=== PATIENT | female | born 1990 | race American Indian/Alaskan Native ===

== ENCOUNTER 2018-01-23 13:12 | Emergency (ER) | payer OTHER ==
[2018-01-23] MEDS ORDERED: CATAPRES PO ONE (14:39)
[2018-01-23 15:08] LABS: Basophils # (Auto) 0.1 K/mm3 (0.0-0.1); Basophils % (Auto) 0.9 % (0.0-1.8); Eosinophils # (Auto) 0.1 K/mm3 (0.0-0.4); Eosinophils % (Auto) 0.8 % (0.0-4.3); Hematocrit 40.3 % (30.3-42.9); Hemoglobin 14.4 gm/dl (10.1-14.3); Lymphocytes # (Auto) 2.8 K/mm3 (1.2-5.4); Lymphocytes % (Auto) 20.9 % (13.4-35.0); Mean Corpuscular HGB Conc 36 % (30-34); Mean Corpuscular Hemoglobin 35 pg (28-32); Mean Corpuscular Volume 99 fl (79-97); Monocytes # (Auto) 0.9 K/mm3 (0.0-0.8); Monocytes % (Auto) 6.7 % (0.0-7.3); Platelet Count 430 K/mm3 (140-440); Red Blood Count 4.07 M/mm3 (3.65-5.03); Red Cell Distribution Width 14.8 % (13.2-15.2)
[2018-01-23 15:18] LABS: INR 0.88 (0.87-1.13)
[2018-01-23 15:19] LABS: Partial Thromboplastin Time 28.3 Sec. (24.2-36.6)
[2018-01-23 15:21] LABS: BUN/Creatinine Ratio 12; Blood Urea Nitrogen 7 mg/dL (7-17); Calcium 9.5 mg/dL (8.4-10.2); Hemolysis Index 9
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
[2018-01-23] MEDS ORDERED: CATAPRES ONE (17:49)
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
[2018-01-23 19:56] VITALS: BP 178/120
== END 2018-01-23 19:53 | disposition other institution (70) ==
LOC: ED 13:12
DX: S12.090A Other displaced fracture of first cervical vertebra, initial encounter for closed fracture (principal); S20.219A Contusion of unspecified front wall of thorax, initial encounter; I10 Essential (primary) hypertension; F17.200 Nicotine dependence, unspecified, uncomplicated; Z91.14 Patient's other noncompliance with medication regimen; V49.59XA Passenger injured in collision with other motor vehicles in traffic accident, initial encounter; W22.10XA Striking against or struck by unspecified automobile airbag, initial encounter; Y93.89 Activity, other specified; Y92.89 Other specified places as the place of occurrence of the external cause; Y99.8 Other external cause status
CPT/HCPCS: 36415; 70450; 71046; 72125; 80048; 84484; 84703; 85025; 85610; 85730; 99291

== ENCOUNTER 2019-08-17 14:11 | Inpatient (IN) | payer OTHER ==
--- NOTE | 2019-08-17 14:33 | Emergency Department Report ---
HPI - General Chief Complaint: Neuro Symptoms/Deficit Time Seen by Provider: 08/17/19 14:27 - HPI HPI: Room 2 Patient is a 29-year-old female present with a chief complaint of right upper extremity weakness. The patient states she developed weakness in her right upper extremity today at approximately noon. Patient appears to have some difficulty expressing herself. Patient denies right lower extremity weakness. ED Past Medical Hx - Past Medical History Previous Medical History?: Yes Hx Hypertension: Yes (no meds) - Surgical History Past Surgical History?: No - Family History Family history: no significant - Social History Smoking Status: Light Tobacco Smoker Substance Use Type: Alcohol - Medications Home Medications: Home Medications Medication Instructions Recorded Confirmed Last Taken Type Amlodipine Besylate [Norvasc] 10 mg PO DAILY #30 tablet 01/23/18 Unknown Rx hydroCHLOROthiazide [HCTZ] 25 mg PO QDAY #30 tablet 01/23/18 Unknown Rx ED Review of Systems ROS: Stated complaint: RT HAND NUMB/DISORIENTED Other details as noted in HPI Neurological: weakness Physical Exam - Physical Exam Physical Exam: GENERAL: The patient is well-developed well-nourished female lying on stretcher not appearing to be in acute distress. [] HEENT: Normocephalic. Atraumatic. Extraocular motions are intact. Patient has moist mucous membranes. NECK: Supple. Trachea midline CHEST/LUNGS: There is no respiratory distress noted. HEART/CARDIOVASCULAR: Regular. There is no tachycardia. ABDOMEN: There is no abdominal distention. SKIN: There is no rash. There is no edema. There is no diaphoresis. NEURO: The patient is awake, alert, and oriented. The patient is cooperative. The patient exhibits weakness in the right hand/right upper extremity. The patient has normal speech MUSCULOSKELETAL: There is no evidence of acute injury. ED Medical Decision Making - Lab Data Result diagrams: 08/17/19 14:28 08/17/19 14:28 Laboratory Tests 08/17/19 08/17/19 08/17/19 14:28 14:28 14:28 WBC 6.7 RBC 4.03 Hgb 14.4 H Hct 41.8 MCV 104 H MCH 36 H MCHC 35 H RDW 16.6 H Plt Count 399 Lymph % (Auto) 19.5 [place] % (Auto) 7.0 Eos % (Auto) 0.5 Baso % (Auto) 0.5 Lymph # 1.3 [place] # 0.5 Eos # 0.0 Baso # 0.0 Seg Neutrophils % 72.5 H Seg Neutrophils # 4.9 PT 14.1 INR 1.08 APTT 26.4 Thrombin Time Sodium 141 Potassium 3.2 L Chloride 102.7 Carbon Dioxide 22 Anion Gap 20 BUN 4 L Creatinine 0.7 Estimated GFR > 60 BUN/Creatinine Ratio 6 Glucose 124 H POC Glucose Calcium 8.3 L Troponin T < 0.010 08/17/19 08/17/19 14:28 14:29 WBC RBC Hgb Hct MCV MCH MCHC RDW Plt Count Lymph % (Auto) [place] % (Auto) Eos % (Auto) Baso % (Auto) Lymph # [place] # Eos # Baso # Seg Neutrophils % Seg Neutrophils # PT INR APTT Thrombin Time 17.0 Sodium Potassium Chloride Carbon Dioxide Anion Gap BUN Creatinine Estimated GFR BUN/Creatinine Ratio Glucose POC Glucose 95 Calcium Troponin T - EKG Data -: EKG Interpreted by Ms EKG shows normal: sinus rhythm Rate: normal - EKG Data When compared to previous EKG there are: previous EKG unavailable Interpretation: other (PAC. No ischemic changes seen) - Radiology Data Radiology results: report reviewed (CT head, CTA brain, CTA neck), image reviewed (CT head, CTA brain, CTA neck) Findings [facility] [address] [place] [address] Cat Scan Report Signed Patient: GERDA SHAVER MR#: [id number] : 1990 Acct:[id number] Age/Sex: 29 / F ADM Date: 08/17/19 Loc: ED Attending Dr: Ordering Physician: JERSON ROMO MD Date of Service: 08/17/19 Procedure(s): CT head/brain wo con Accession Number(s): [id number] cc: JERSON ROMO MD CT head/brain wo con INDICATION / CLINICAL INFORMATION: 29 years Female; MAIN: CODE STROKE s <6hrs or sx present upon awakening PT HAVING TREMORS ALTERED HIGH BP #[id number]. Arm weakness and speech difficulty TECHNIQUE: Routine CT head without contrast. All CT scans at this location are performed using CT dose reduction for ALARA by means of automated exposure control. COMPARISON: None. FINDINGS: BRAIN / INTRACRANIAL CONTENTS: No acute hemorrhage, mass effect, midline shift, hydrocephalus, or acute, large territorial infarct. No chronic infarct or atrophy appreciated. No significant white matter abnormality. CRANIOCERVICAL JUNCTION: No significant abnormality. ORBITS: No significant abnormality of visualized orbits. SINUSES / MASTOIDS: No significant abnormality the visualized paranasal sinuses or mastoid air cells. ADDITIONAL FINDINGS: None. IMPRESSION: 1. No focal mass, hemorrhage, hydrocephalus, or acute, large territorial infarct. This exam was performed as part of a code stroke protocol. The exam was completed on 08/17/2019 1:30 PM. The exam was reviewed at 1:[address] Romo was notified at 1:36 PM. Signer Name: Eddie Tan MD, III Si gned: 08/17/2019 2:38 PM Workstation Name: [id number] Transcribed By: HR Dictated By: Eddie aTn MD Electronically Authenticated By: Eddie Tan MD Signed Date/Time: 08/17/191437 DD/ 31 TD/TT: [place] [address] Cat Scan Report Signed Patient: GERDA SHAVER MR#: [id number] : 1990 Acct:[id number] Age/Sex: 29 / F ADM Date: 08/17/19 Loc: ED Attending Dr: Ordering Physician: PRINCE MELGAR MD Date of Service: 08/17/19 Procedure(s): CT angio head Accession Number(s): [id number] cc: PRINCE MELGAR MD CT angio head INDICATION / CLINICAL INFORMATION: 29 years Female; MAIN: aphasia OMNI 370 100ML. TECHNIQUE: Thin cut axial images obtained through the head during IV bolus contrast administration. Sagittal, coronal, and 3 plane MIP reconstructions performed by the technologist. NASCET type criteria used evaluate stenoses. Automated exposure control utilized for radiation reduction purposes. COMPARISON: None available. FINDINGS: INTERNAL CAROTID ARTERIES: No significant narrowing appreciated. VERTEBROBASILAR SYSTEM: No significant narrowing appreciated. DISTAL BRANCHES: Distal branches of the anterior, middle, and posterior cerebral arteries are fairly symmetric in appearance and number. ANEURYSM: None identified. ADDITIONAL FINDINGS: Remainder of the surrounding soft tissues are grossly normal. IMPRESSION: No significant narrowing appreciated on this CTA of the head. Ischemia cannot be excluded without diffusion imaging by MRI. Signer Name: Eddie Tan MD, III Signed: 08/17/2019 4:35 PM Workstation Name: [id number] Transcribed By: Dictated By: Eddie Tan MD Electronically Authenticated By: Eddie Tan MD Signed Date/Time: 08/17/19 163 DD/ 1626 TD/TT: [facility] [address] [place] [address] Cat Scan Report Signed Patient: GERDA SHAVER MR#: [id number] : 1990 Acct:[id number] Age/Sex: 29 / F ADM Date: 08/17/19 Loc: ED Attending Dr: Ordering Physician: PRINCE MELGAR MD Date of Service: 08/17/19 Procedure(s): CT angio neck Accession Number(s): [id number] cc: PRINCE MELGAR MD CT angio neck INDICATION / CLINICAL INFORMATION: 29 years Female; MAIN: aphasia OMNI 370 100ML . TECHNIQUE: Thin cut axial images obtained through the head during IV bolus contrast administration. Sagittal, coronal, and 3 plane MIP reconstructions performed by the technologist. NASCET type criteria used evaluate stenoses. All CT scans at this location are performed using CT dose reduction for ALARA by means of automated exposure control. COMPARISON: None available. FINDINGS: ARCH: Near bovine arch configuration noted. CAROTID ARTERIES: The visualized common and internal carotid arteries are widely patent. VERTEBRAL ARTERIES: Codominant vertebral system seen. No significant stenosis appreciated. ADDITIONAL FINDINGS: There is a radicular cyst suggested along the medial incisor along the left maxillary alveolar ridge. IMPRESSION: No significant stenosis appreciated on this CTA of the neck. Signer Name: Eddie Tan MD, III Signed: 08/17/2019 4:39 PM Workstation Name: [id number] Transcribed By: Dictated By: Eddie Tan MD Electronically Authenticated By: Eddie Tan MD Signed Date/Time: 08/17/19 1639 DD/ 1635 TD/TT: - Differential Diagnosis CVA Critical care attestation.: If time is entered above; I have spent that time in minutes in the direct care of this critically ill patient, excluding procedure time. ED Disposition Clinical Impression: CVA (cerebral vascular accident) Disposition: 09 OP ADMIT IP TO THIS HOSP Is pt being admited?: Yes Does the pt Need Aspirin: No Condition: Serious Time of Disposition: 16:48 (Hospitalist paged (Dr De La Garza))
[2019-08-17 14:42] LABS: Basophils % (Auto) 0.5 % (0.0-1.8); Eosinophils % (Auto) 0.5 % (0.0-4.3); Hematocrit 41.8 % (30.3-42.9); Hemoglobin 14.4 gm/dl (10.1-14.3); Lymphocytes # (Auto) 1.3 K/mm3 (1.2-5.4); Lymphocytes % (Auto) 19.5 % (13.4-35.0); Mean Corpuscular HGB Conc 35 % (30-34); Mean Corpuscular Volume 104 fl (79-97); Monocytes # (Auto) 0.5 K/mm3 (0.0-0.8); Platelet Count 399 K/mm3 (140-440); Red Blood Count 4.03 M/mm3 (3.65-5.03); Red Cell Distribution Width 16.6 % (13.2-15.2)
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
[2019-08-17] MEDS ORDERED: ALTEPLASE 100 MG INJ KIT ONE (14:43)
[2019-08-17] MEDS ORDERED: SODIUM CHLORIDE 0.9% 50 ML IVPB IV ONE (14:47)
[2019-08-17] MEDS ORDERED: ALTEPLASE 100 MG INJ KIT IV ONE ×2 (14:47)
[2019-08-17 14:54] LABS: BUN/Creatinine Ratio 6; Blood Urea Nitrogen 4 mg/dL (7-17); Calcium 8.3 mg/dL (8.4-10.2); Hemolysis Index 6
[2019-08-17] MEDS ORDERED: POTASSIUM CHLORIDE ER 20 MEQ TAB PO ONE ×2 (14:57→17:38)
--- NOTE | 2019-08-17 14:57 | Emergency Department Report ---
ED Neuro Deficit HPI - General Chief Complaint: Neuro Symptoms/Deficit Stated Complaint: RT HAND NUMB/DISORIENTED Time Seen by Provider: 08/17/19 14:27 Source: patient Mode of arrival: Ambulatory Limitations: No Limitations - History of Present Illness Initial Comments: [facility] Tele[facility]urology Consult Services Date of Service: 08/17/2019 14:20:17 Impression: Rule Out Acute Ischemic Stroke Comments/Sign-Out: Patient is a 29 years old woman with history of HTN who presents to the ED c/o right hand numbness/weakness and confusion since noon today. NIHSS is 4 for right hand promotions intern weakness and numbness as well as expressive aphasia. Non contrast CTH shows no acute abnormalities. Presentation could be concerning for acute stroke, small embolic etiology. She has no absolute contraindications for IV tPA and is within the therapeutic window. Will proceed with treatment. DDx also includes HTN urgency. Mechanism of Stroke: Possible Cardioembolic Metrics: Last Known Well: 08/17/2019 12:00:00 [employer] Notification Time: 08/17/2019 14:19:51 Arrival Time: 08/17/2019 14:18:00 Stamp Time: 08/17/2019 14:20:17 Time First Login Attempt: 08/17/2019 14:30:00 Video Start Time: 08/17/2019 14:30:00 Symptoms: Walking difficulty and unresponsiveness NIHSS Start Assessment Time: 08/17/2019 14:32:09 tPA Verbal Order Time: 08/17/2019 14:41:15 Patient is a candidate for tPA. tPA CPOE Order Time: 08/17/2019 14:47:00 Needle Time: 08/17/2019 14:57:03 Weight Noted by Staff: 69 kg Video End Time: 08/17/2019 15:07:32 CT head showed no acute hemorrhage or acute core infarct. Lower Likelihood of Large Vessel Occlusion but Following Stat Studies are Recommended CTA Head and Neck. Reviewed, No Indication of Large Vessel Occlusive Thrombus, Patient is not an MAI Candidate. ED Physician notified of diagnostic impression and management plan on 08/17/2019 15:07:33 Verbal Consent to tPA: I have explained to the Patient the nature of the patients condition, the use of tPA fibrinolytic agent, and the benefits to be reasonably expected compared with alternative approaches. I have discussed the likelihood of major risks or complications of this procedure including (if applicable) but not limited to loss of limb function, brain damage, paralysis, hemorrhage, infection, complications from transfusion of blood components, drug reactions, blood clots and loss of life. I have also indicated that with any procedure there is always the possibility of an unexpected complication. All questions were answered and Patient express understanding of the treatment plan and consent to the treatment. Our recommendations are outlined below. Recommendations: IV tPA recommended. tPA bolus given Without Complication. IV tPA Total Dose 62.1 mg IV tPA Bolus Dose 6.2 mg IV tPA Infusion Dose - 55.9 mg Routine post tPA monitoring including neuro checks and blood pressure control during/after treatment Monitor blood pressure Check blood pressure and NIHSS every 15 min for 2 h, then every 30 min for 6 h, and finally every hour for 16 h. Manage Blood Pressure per post tPA protocol. Admission to ICU CT brain 24 hours post tPA NPO until swallowing screen performed and passed No antiplatelet agents or anticoagulants (including heparin for DVT prophylaxis) in first 24 hours No Ornelas catheter, nasogastric tube, arterial catheter or central venous catheter for 24 hr, unless absolutely necessary Telemetry Bedside swallow evaluation HOB less than 30 degrees Euglycemia Avoid hyperthermia, PRN acetaminophen DVT prophylaxis Inpatient Neurology Consultation Stroke evaluation as per inpatient neurology recommendations Discussed with ED physician History of Present Illness: Patient is a 29 year old Female. Patient was brought by private transportation with symptoms of Walking difficulty and unresponsiveness Patient is a 29 years old woman with history of HTN who presents to the ED c/o right hand numbness and weakness as well as confusion that started at noon as reported by her boyfriend. Symptoms have remained constant since onset. She denies any other associated symptoms. She has no prior history of stroke. No family history of stroke. History of tobacco and marihuana use, last time last night. CT head showed no acute hemorrhage or acute core infarct. Last seen normal was within 4.5 hours. There is no history of hemorrhagic complications or intracranial hemorrhage. There is no history of Recent Anticoagulants. There is no history of recent major surgery. There is no history of recent stroke. Examination: BP(175/89 206/126 167/117 183/110 168/102 - bolus), Pulse(107), Blood Glucose(91) 1A: Level of Consciousness - Alert; keenly responsive + 0 1B: Ask Month and Age - Both Questions Right + 0 1C: Blink Eyes & Squeeze Hands - Performs Both Tasks + 0 2: Test Horizontal Extraocular Movements - Normal + 0 3: Test Visual Bradford - No Visual Loss + 0 4: Test Facial Palsy (Use Grimace if Obtunded) - Normal symmetry + 0 5A: Test Left Arm Motor Drift - No Drift for 10 Seconds + 0 5B: Test Right Arm Motor Drift - Drift, but doesn't hit bed + 1 6A: Test Left Leg Motor Drift - No Drift for 5 Seconds + 0 6B: Test Right Leg Motor Drift - No Drift for 5 Seconds + 0 7: Test Limb Ataxia (FNF/Heel-Erickson) - No Ataxia + 0 8: Test Sensation - Mild-Moderate Loss: Less Sharp/More Dull + 1 9: Test Language/Aphasia - Severe Aphasia: Fragmentary Expression, Inference Needed, Cannot Identify Materials + 2 10: Test Dysarthria - Normal + 0 11: Test Extinction/Inattention - No abnormality + 0 NIHSS Score: 4 Patient was informed the Neurology Consult would happen via TeleHealth consult by way of interactive audio and video telecommunications and consented to receiving care in this manner. Due to the immediate potential for life-threatening deterioration due to underlying acute neurologic illness, I spent 35 minutes providing critical care. This time includes time for face to face visit via telemedicine, review of medical records, imaging studies and discussion of findings with providers, the patient and/or family. Dr Joanne Martinez [facility] Case [id number] - Related Data Home Medications: Previous Rx's Medication Instructions Recorded Last Taken Type Amlodipine Besylate [Norvasc] 10 mg PO DAILY #30 tablet 01/23/18 Unknown Rx hydroCHLOROthiazide [HCTZ] 25 mg PO QDAY #30 tablet 01/23/18 Unknown Rx Allergies/Adverse Reactions: Allergies Allergy/AdvReac Type Severity Reaction Status Date / Time No Known Allergies Allergy Verified 01/23/18 14:18 ED Review of Systems ROS: Stated complaint: RT HAND NUMB/DISORIENTED Other details as noted in HPI ED Past Medical Hx - Past Medical History Previous Medical History?: Yes Hx Hypertension: Yes (no meds) - Surgical History Past Surgical History?: No - Social History Smoking Status: Light Tobacco Smoker Substance Use Type: Alcohol - Medications Home Medications: Home Medications Medication Instructions Recorded Confirmed Last Taken Type Amlodipine Besylate [Norvasc] 10 mg PO DAILY #30 tablet 01/23/18 Unknown Rx hydroCHLOROthiazide [HCTZ] 25 mg PO QDAY #30 tablet 01/23/18 Unknown Rx ED Neuro Physical Exam - General Limitations: No Limitations Suspected Stroke: Yes - NIHSS Assessment Interval: Baseline 1a. Level of Consciousness: alert/keenly responsive 1b. LOC Questions: answers both correctly 1c. LOC Commands: performs tasks correctly 2. Best Gaze: normal 3. Visual: no visual loss 4. Facial Palsy: normal symmetrical movement 5b. Motor Arm Right: drift 5a. Motor Arm Left: no drift 6a. Motor Leg Left: no drift 6b. Motor Leg Right: no drift 7. Limb Ataxia: absent 8. Sensory: mild/moderate sensory loss 9. Best Language: severe aphasia 10. Dysarthria: normal 11. Extinction/Inattention: no abnormality Total Score: 4 Stroke Severity: Minor Stroke ED Course Vital Signs 08/17/19 08/17/19 08/17/19 14:53 14:55 14:57 Pulse Rate 106 H 107 H Respiratory Rate Blood Pressure 184/114 185/117 Blood Pressure [Left] O2 Sat by Pulse 100 Oximetry 08/17/19 08/17/19 08/17/19 15:00 15:15 15:21 Pulse Rate 94 H Respiratory 16 14 Rate Blood Pressure 184/110 Blood Pressure 192/117 [Left] O2 Sat by Pulse 98 99 Oximetry 08/17/19 08/17/19 08/17/19 15:30 15:45 15:46 Pulse Rate 90 102 H 105 H Respiratory 21 16 19 Rate Blood Pressure 191/120 166/101 Blood Pressure 166/101 [Left] O2 Sat by Pulse 99 99 96 Oximetry 08/17/19 08/17/19 16:00 16:30 Pulse Rate 96 H 131 H Respiratory 16 15 Rate Blood Pressure 157/95 Blood Pressure 162/107 [Left] O2 Sat by Pulse 100 96 Oximetry - Lab Data Result diagrams: 08/17/19 14:28 08/17/19 14:28 Lab Results 08/17/19 08/17/19 08/17/19 Range/Units 14:28 14:28 14:28 WBC 6.7 (4.5-11.0) K/mm3 RBC 4.03 (3.65-5.03) M/mm3 Hgb 14.4 H (10.1-14.3) gm/dl Hct 41.8 (30.3-42.9) % MCV 104 H (79-97) fl MCH 36 H (28-32) pg MCHC 35 H (30-34) % RDW 16.6 H (13.2-15.2) % Plt Count 399 (140-440) K/mm3 Lymph % (Auto) 19.5 (13.4-35.0) % Falls % (Auto) 7.0 (0.0-7.3) % Eos % (Auto) 0.5 (0.0-4.3) % Baso % (Auto) 0.5 (0.0-1.8) % Lymph # 1.3 (1.2-5.4) K/mm3 Falls # 0.5 (0.0-0.8) K/mm3 Eos # 0.0 (0.0-0.4) K/mm3 Baso # 0.0 (0.0-0.1) K/mm3 Seg Neutrophils % 72.5 H (40.0-70.0) % Seg Neutrophils # 4.9 (1.8-7.7) K/mm3 PT 14.1 (12.2-14.9) Sec. INR 1.08 (0.87-1.13) APTT 26.4 (24.2-36.6) Sec. Thrombin Time (15.1-19.6) Sec. Sodium 141 (137-145) mmol/L Potassium 3.2 L (3.6-5.0) mmol/L Chloride 102.7 (98-107) mmol/L Carbon Dioxide 22 (22-30) mmol/L Anion Gap 20 mmol/L BUN 4 L (7-17) mg/dL Creatinine 0.7 (0.7-1.2) mg/dL Estimated GFR > 60 ml/min BUN/Creatinine Ratio 6 % Glucose 124 H (65-100) mg/dL POC Glucose (70-105) Calcium 8.3 L (8.4-10.2) mg/dL Troponin T < 0.010 (0.00-0.029) ng/mL 08/17/19 08/17/19 Range/Units 14:28 14:29 WBC (4.5-11.0) K/mm3 RBC (3.65-5.03) M/mm3 Hgb (10.1-14.3) gm/dl Hct (30.3-42.9) % MCV (79-97) fl MCH (28-32) pg MCHC (30-34) % RDW (13.2-15.2) % Plt Count (140-440) K/mm3 Lymph % (Auto) (13.4-35.0) % Falls % (Auto) (0.0-7.3) % Eos % (Auto) (0.0-4.3) % Baso % (Auto) (0.0-1.8) % Lymph # (1.2-5.4) K/mm3 Falls # (0.0-0.8) K/mm3 Eos # (0.0-0.4) K/mm3 Baso # (0.0-0.1) K/mm3 Seg Neutrophils % (40.0-70.0) % Seg Neutrophils # (1.8-7.7) K/mm3 PT (12.2-14.9) Sec. INR (0.87-1.13) APTT (24.2-36.6) Sec. Thrombin Time 17.0 (15.1-19.6) Sec. Sodium (137-145) mmol/L Potassium (3.6-5.0) mmol/L Chloride (98-107) mmol/L Carbon Dioxide (22-30) mmol/L Anion Gap mmol/L BUN (7-17) mg/dL Creatinine (0.7-1.2) mg/dL Estimated GFR ml/min BUN/Creatinine Ratio % Glucose (65-100) mg/dL POC Glucose 95 (70-105) Calcium (8.4-10.2) mg/dL Troponin T (0.00-0.029) ng/mL Critical care attestation.: If time is entered above; I have spent that time in minutes in the direct care of this critically ill patient, excluding procedure time. ED Disposition Clinical Impression: CVA (cerebral vascular accident) Disposition: DC-09 OP ADMIT IP TO THIS HOSP Is pt being admited?: Yes Condition: Serious
[2019-08-17 15:01] LABS: INR 1.08 (0.87-1.13); Partial Thromboplastin Time 26.4 Sec. (24.2-36.6)
[2019-08-17] MEDS: niCARdipine 50 MG in SODIUM CHLORIDE 0.9% 250ML 230 ML IV SCH ×2 (15:20→23:42)
--- NOTE | 2019-08-17 16:39 | Cat Scan Report ---
CT angio head INDICATION / CLINICAL INFORMATION: 29 years Female; MAIN: aphasia OMNI 370 100ML. TECHNIQUE: Thin cut axial images obtained through the head during IV bolus contrast administration. S agittal, coronal, and 3 plane MIP reconstructions performed by the technologist. NASCET type criteria used evaluate stenoses. Automated exposure control utilized for radiation reduction purposes. COMPARISON: None available. FINDINGS: INTERNAL CAROTID ARTERIES: No significant narrowing appreciated. VERTEBROBASILAR SYSTEM: No significant narrowing appreciated. DISTAL BRANCHES: Distal branches of the anterior, middle, and posterior cerebral arteries are fairly symmetric in appearance and number. ANEURYSM: None identified. ADDITIONAL FINDINGS: Remainder of the surrounding soft tissues are grossly normal. IMPRESSION: No significant narrowing appreciated on this CTA of the head. Ischemia cannot be excluded without dif fusion imaging by MRI. Signer Name: Eddie Tan MD, III Signed: 08/17/2019 4:35 PM Workstation Name: [id number]
--- NOTE | 2019-08-17 16:44 | Cat Scan Report ---
CT angio neck INDICATION / CLINICAL INFORMATION: 29 years Female; MAIN: aphasia OMNI 370 100ML . TECHNIQUE: Thin cut axial images obtained through the head during IV bolus contrast administration. S agittal, coronal, and 3 plane MIP reconstructions performed by the technologist. NASCET type criteria used evaluate stenoses. All CT scans at this location are performed using CT dose reduction for ALAR A by means of automated exposure control. COMPARISON: None available. FINDINGS: ARCH: Near bovine arch configuration noted. CAROTID ARTERIES: The visualized common and internal carotid arteries are widely patent. VERTEBRAL ARTERIES: Codominant vertebral system seen. No significant stenosis appreciated. ADDITIONAL FINDINGS: There is a radicular cyst suggested along the medial incisor along the left maxi llary alveolar ridge. IMPRESSION: No significant stenosis appreciated on this CTA of the neck. Signer Name: Eddie Tan MD, III Signed: 08/17/2019 4:39 PM Workstation Name: [id number]
[2019-08-17] MEDS ORDERED: ONDANSETRON 4 MG/2 ML INJ IV PRN (16:50)
[2019-08-17] MEDS ORDERED: MAGNESIUM HYDROXIDE (MOM) ORAL LIQD UDC PO PRN (16:50)
[2019-08-17] MEDS ORDERED: PROMETHAZINE 25 MG RECT SUPP PR PRN (16:50)
[2019-08-17] MEDS ORDERED: ACETAMINOPHEN 325 MG TAB PO PRN (16:50)
[2019-08-17] MEDS ORDERED: METOCLOPRAMIDE 10 MG TAB PO PRN (16:50)
--- NOTE | 2019-08-17 16:50 | History and Physical Report ---
History of Present Illness Chief complaint: I felt weak but I am better now History of present illness: 29 YO Female with HTN, Medication Noncompliance, Nicotine Dependence presents to ED for evaluation. Patient states that she experienced sudden onset weakness in her right arm today and difficulty speaking. Patient states that the symptoms began approximately 1200 hrs. patient transported to [facility] via private vehicle for further care and evaluation. Patient seen and evaluated in the emergency department. Patient was found to have slurred speech and right upper extremity weakness. A code stroke was called. Tele-neurology was consulted and recommended mended administration of TPA. Patient was treated with TPA in the emergency department. Patient admitted to ICU for further care and evaluation. Patient symptoms resolved and patient is currently ambulating around the room without difficulty. Patient was subsequently downgraded to [facility] for further care and evaluation. Neurology consult placed in the emergency department. No prior admission for review. All medication listed at time of admission has been reconciled. Patient denies fever, chills, chest pain, palpitation, productive cough, skin rash, recent ill contacts. Past History Past Medical History: hypertension, other (See HPI) Past Surgical History: No surgical history, Other (Reviewed) Social history: single, smoking Family history: hypertension Medications and Allergies Allergies Allergy/AdvReac Type Severity Reaction Status Date / Time No Known Allergies Allergy Verified 01/23/18 14:18 Home Medications Medication Instructions Recorded Confirmed Last Taken Type Amlodipine Besylate [Norvasc] 10 mg PO DAILY #30 tablet 01/23/18 Unknown Rx hydroCHLOROthiazide [HCTZ] 25 mg PO QDAY #30 tablet 01/23/18 Unknown Rx Active Meds: Active Medications Nicardipine HCl 50 mg/ Sodium (Chloride) 250 mls @ 25 mls/hr IV TITR NORM; Protocol Last Titration: 08/17/19 15:37 Dose: 7.5 mg/hr, 37.5 mls/hr Documented by: Review of Systems Constitutional: no weight loss, no weight gain, no fever, no chills Ears, nose, mouth and throat: no ear pain, no ear discharge, no tinnitis, no decreased hearing, no nose pain, no nasal congestion Breasts: no change in shape, no swelling, no mass Cardiovascular: no chest pain, no orthopnea, no palpitations, no rapid/irregular heart beat Respiratory: no cough, no cough with sputum, no hemoptysis, no shortness of breath Gastrointestinal: no nausea, no vomiting, no diarrhea, no change in bowel hab its, no coffee ground emesis Genitourinary Female: no pelvic pain, no flank pain, no dysuria, no urinary frequency Rectal: no pain, no incontinence, no bleeding Musculoskeletal: no neck stiffness, no shooting arm pain, no arm numbness/tingling, no low back pain Integumentary: no rash, no pruritis, no wounds Neurological: weakness, change in speech, no tingling, no seizures, no syncope, no tremors Psychiatric: no anxiety, no change in sleep habits, no sleep disturbances, no insomnia, no hypersomnia, no change in libido Endocrine: no cold intolerance, no heat intolerance, no polydipsia Hematologic/Lymphatic: no easy bruising, no easy bleeding, no lymphadenopathy, no lymphedema Allergic/Immunologic: no urticaria, no allergic rhinitis, no wheezing, no persistent infections, no angioedema Exam - Constitutional Vitals: Temp Pulse Resp BP Pulse Ox 131 H 15 157/95 96 08/17/19 16:30 08/17/19 16:30 08/17/19 16:30 08/17/19 16:30 General appearance: Present: no acute distress, well-nourished - EENT Eyes: Present: PERRL ENT: hearing intact, clear oral mucosa - Neck Neck: Present: supple, normal ROM - Respiratory Respiratory effort: normal Respiratory: bilateral: CTA - Cardiovascular Heart Sounds: Present: S1 & S2. Absent: rub, click - Extremities Extremities: pulses symmetrical, No edema Peripheral Pulses: within normal limits - Abdominal General gastrointestinal: Present: soft, non-tender, non-distended, normal bowel sounds Female genitourinary: Present: normal - Integumentary Integumentary: Present: clear, warm, dry - Musculoskeletal Musculoskeletal: gait normal, strength equal bilaterally - Psychiatric Psychiatric: appropriate mood/affect, intact judgment & insight - Neurologic Neurologic: CNII-XII intact, moves all extremities Results - Labs CBC & Chem 7: 08/17/19 14:28 08/17/19 14:28 Labs: Abnormal lab results 08/17/19 08/17/19 Range/Units 14:28 14:28 Hgb 14.4 H (10.1-14.3) gm/dl MCV 104 H (79-97) fl MCH 36 H (28-32) pg MCHC 35 H (30-34) % RDW 16.6 H (13.2-15.2) % Seg Neutrophils % 72.5 H (40.0-70.0) % Potassium 3.2 L (3.6-5.0) mmol/L BUN 4 L (7-17) mg/dL Glucose 124 H (65-100) mg/dL Calcium 8.3 L (8.4-10.2) mg/dL Assessment and Plan - Patient Problems (1) CVA (cerebral vascular accident) Current Visit: Yes Status: Acute Qualifiers: Precerebral and cerebral artery: middle cerebral artery Laterality of affected vessel: left Plan to address problem: Admit to IMCU: CVA protocol. CT head, neuro check, echocardiogram, carotid Doppler, neurology consult, tele-neurology consulted in ED, lipid panel, statin therapy, urine drug screen, physical therapy/Occupational Therapy, speech therapy. (2) Hypertension Current Visit: Yes Status: Acute Qualifiers: Hypertension type: essential hypertension Qualified Code(s): I10 - Essential (primary) hypertension Plan to address problem: Monitor blood pressure every shift, permissive hypertension overnight (3) Noncompliance Current Visit: Yes Status: Acute Plan to address problem: Patient counseled regarding medication compliance. Patient informed that future noncompliance with antihypertensive therapy may result in worsening symptoms, uncontrolled hypertension, recurrent strokes and even . Patient knowledges understanding instructions. (4) DVT prophylaxis Current Visit: Yes Status: Acute Plan to address problem: SCD to bilateral lower extremities while in bed, patient is ambulatory
[2019-08-17 20:19] LABS: Benzodiazepines Screen,Urine PRESUMPTIVE NEGATIVE; Cocaine Screen,Urine PRESUMPTIVE NEGATIVE; Methadone Screen,Urine PRESUMPTIVE NEGATIVE; Opiate Screen,Urine PRESUMPTIVE NEGATIVE
[2019-08-17 20:46] LABS: Amphetamine Screen,Urine PRESUMPTIVE POSITIVE; Cannabinoid Screen,Urine PRESUMPTIVE POSITIVE
[2019-08-18 05:52] LABS: Chol/HDL Ratio 2.01 %
--- NOTE | 2019-08-18 10:24 | Progress Note ---
Assessment and Plan Assessment and plan: Acute CVA. Continue CVA protocol. CT scan of the head negative. tPA was given. follow-up echocardiogram, carotid Doppler and neurology consultation. PT/OT. Hypertension. Continue antihypertensive medications. Medical noncompliance. Patient was counseled regarding medication compliance. DVT prophylaxis. Continue SCDs to bilateral lower extremities. History Interval history: No new issues overnight. Hospitalist Physical - Constitutional Vitals: Temp Pulse Resp BP Pulse Ox 112 H 24 151/93 98 08/18/19 10:00 08/18/19 10:00 08/18/19 10:00 08/18/19 10:00 General appearance: Present: no acute distress, well-nourished - EENT Eyes: Present: PERRL, EOM intact ENT: hearing intact, clear oral mucosa, dentition normal - Neck Neck: Present: supple, normal ROM - Respiratory Respiratory effort: normal Respiratory: bilateral: CTA - Cardiovascular Rhythm: regular Heart Sounds: Present: S1 & S2. Absent: gallop, rub - Extremities Extremities: no ischemia, No edema, Full ROM - Abdominal General gastrointestinal: soft, non-tender, non-distended, normal bowel sounds - Integumentary Integumentary: Present: clear, warm, dry - Neurologic Neurologic: CNII-XII intact, moves all extremities Results - Labs CBC & Chem 7: 08/17/19 14:28 08/17/19 14:28 Labs: Laboratory Last Values WBC 6.7 K/mm3 (4.5-11.0) 08/17/19 14:28 RBC 4.03 M/mm3 (3.65-5.03) 08/17/19 14:28 Hgb 14.4 gm/dl (10.1-14.3) H 08/17/19 14:28 Hct 41.8 % (30.3-42.9) 08/17/19 14:28 MCV 104 fl (79-97) H 08/17/19 14:28 MCH 36 pg (28-32) H 08/17/19 14:28 MCHC 35 % (30-34) H 08/17/19 14:28 RDW 16.6 % (13.2-15.2) H 08/17/19 14:28 Plt Count 399 K/mm3 (140-440) 08/17/19 14:28 Lymph % (Auto) 19.5 % (13.4-35.0) 08/17/19 14:28 [place] % (Auto) 7.0 % (0.0-7.3) 08/17/19 14:28 Eos % (Auto) 0.5 % (0.0-4.3) 08/17/19 14:28 Baso % (Auto) 0.5 % (0.0-1.8) 08/17/19 14:28 Lymph # 1.3 K/mm3 (1.2-5.4) 08/17/19 14:28 [place] # 0.5 K/mm3 (0.0-0.8) 08/17/19 14:28 Eos # 0.0 K/mm3 (0.0-0.4) 08/17/19 14:28 Baso # 0.0 K/mm3 (0.0-0.1) 08/17/19 14:28 Seg Neutrophils % 72.5 % (40.0-70.0) H 08/17/19 14:28 Seg Neutrophils # 4.9 K/mm3 (1.8-7.7) 08/17/19 14:28 PT 14.1 Sec. (12.2-14.9) 08/17/19 14:28 INR 1.08 (0.87-1.13) 08/17/19 14:28 APTT 26.4 Sec. (24.2-36.6) 08/17/19 14:28 Thrombin Time 17.0 Sec. (15.1-19.6) 08/17/19 14:28 Sodium 141 mmol/L (137-145) 08/17/19 14:28 Potassium 3.2 mmol/L (3.6-5.0) L 08/17/19 14:28 Chloride 102.7 mmol/L (98-107) 08/17/19 14:28 Carbon Dioxide 22 mmol/L (22-30) 08/17/19 14:28 Anion Gap 20 mmol/L 08/17/19 14:28 BUN 4 mg/dL (7-17) L 08/17/19 14:28 Creatinine 0.7 mg/dL (0.7-1.2) 08/17/19 14:28 Estimated GFR > 60 ml/min 08/17/19 14:28 BUN/Creatinine Ratio 6 % 08/17/19 14:28 Glucose 124 mg/dL (65-100) H 08/17/19 14:28 POC Glucose 95 (70-105) 08/17/19 14:29 Calcium 8.3 mg/dL (8.4-10.2) L 08/17/19 14:28 Troponin T < 0.010 ng/mL (0.00-0.029) 08/17/19 14:28 Triglycerides 105 mg/dL (2-149) 08/18/19 04:31 Cholesterol 228 mg/dL (50-199) H 08/18/19 04:31 LDL Cholesterol Direct 96 mg/dL (50-130) 08/18/19 04:31 HDL Cholesterol 113 mg/dL (40-59) H 08/18/19 04:31 Cholesterol/HDL Ratio 2.01 % 08/18/19 04:31 Urine Opiates Screen Presumptive negative 08/17/19 19:35 Urine Methadone Screen Presumptive negative 08/17/19 19:35 Ur Barbiturates Screen Presumptive negative 08/17/19 19:35 Ur Phencyclidine Scrn Presumptive negative 08/17/19 19:35 Ur Amphetamines Screen Presumptive positive 08/17/19 19:35 U Benzodiazepines Scrn Presumptive negative 08/17/19 19:35 Urine Cocaine Screen Presumptive negative 08/17/19 19:35 U Marijuana (THC) Screen Presumptive positive 08/17/19 19:35 Drugs of Abuse Note Disclamer 08/17/19 19:35 Ornelas/IV: Voiding Method Toilet IV Catheter Type [Left Peripheral IV Antecubital] IV Catheter Type [Right Peripheral IV Antecubital] IV Catheter Type [Left Forearm Peripheral IV ] Active Medications - Current Medications Current Medications: Generic Name Dose Route Start Last Admin Trade Name Freq PRN Reason Stop Dose Admin Acetaminophen 650 mg 08/17/19 16:50 Tylenol PO Q4H PRN Pain, Mild (1-3) Atorvastatin Calcium 40 mg 08/17/19 22:00 08/17/19 22:45 Lipitor PO 40 mg QHS NORM Administration Bisacodyl 10 mg 08/17/19 16:50 Dulcolax PA QDAY PRN Constipation Nicardipine HCl 50 mg/ Sodium 250 mls @ 25 mls/hr 08/17/19 15:30 08/18/19 0 8:26 Chloride IV Infused TITR NORM Titration Protocol 5 MG/HR Magnesium Hydroxide 30 ml 08/17/19 16:50 Milk Of Magnesia PO Q4H PRN Constipation Metoclopramide HCl 10 mg 08/17/19 16:50 Reglan PO Q6H PRN Nausea And Vomiting Ondansetron HCl 4 mg 08/17/19 16:50 Zofran IV Q8H PRN Nausea And Vomiting Promethazine HCl 25 mg 08/17/19 16:50 Phenergan PA Q6H PRN Nausea And Vomiting Sodium Chloride 10 ml 08/17/19 16:50 Sodium Chloride Flush Syringe 10 Ml IV PRN PRN LINE FLUSH
--- NOTE | 2019-08-18 15:47 | Vascular Lab Report ---
Bilateral Carotid Doppler Ultrasound INDICATION : stroke TECHNIQUE: Grayscale and color Doppler imaging performed through the neck. COMPARISON: None FINDINGS: Right: There is no significant atherosclerotic disease. Peak systolic velocity in the CCA is 76 cm/ s with end-diastolic velocity of 22 cm/s. Peak systolic velocity in the proximal ICA is 93 cm/s with end-diastolic velocity of 39 cm/s. ICA to CCA ratio is less than 2. There is antegrade flow in the E CA and the vertebral artery. Left: There is no significant atherosclerotic disease. Peak systolic velocity in the CCA is 89 cm/s w ith end-diastolic velocity of 28 cm/s. Peak systolic velocity in the proximal ICA is 110 cm/s with en d-diastolic velocity of 46 cm/s. ICA to CCA ratio is less than 2. There is antegrade flow in the ECA and the vertebral artery. IMPRESSION: No hemodynamically significant stenosis by NASCET criteria. Signer Name: Bebo Tsai MD Signed: 08/18/2019 3:43 PM Workstation Name: [id number]
--- NOTE | 2019-08-19 10:22 | Progress Note ---
Assessment and Plan Assessment and plan: -- CVA (cerebral vascular accident) Current Visit: Yes Status: Acute Admit to [facility]: CVA protocol. CT head, neuro check, echocardiogram, carotid Dopp ler, neurology consult, tele-neurology consulted in ED, lipid panel, statin therapy, urine drug screen, physical therapy/Occupational Therapy, speech therapy. Neuro work-up so far; CT head; no focal mass hemorrhage hydrocephalus or infarct CTA head; no significant narrowing on CTA head CTA neck; no significant stenosis on CTA neck\ Carotid Doppler; no hemodynamically significant stenosis Echo; EF 65 to 70%, no ASD CT cervical spine; comminuted fracture involving the left anterior C1 vertebra with mild displacement of the fracture fragments recommend further evaluation with CTA neck to evaluate the vertebral arteries Minimal depression of the superior endplate of T3 on 2 4 of uncertain chronicity Possible bilateral mandibular neck fractures recommend further evaluation with CT maxillofacial CVA status post TPA -- Hypertension Current Visit: Yes Status: Acute Monitor blood pressure every shift, permissive hypertension overnight --Noncompliance Current Visit: Yes Status: Acute Patient counseled regarding medication compliance. Patient informed that future noncompliance with antihypertensive therapy may result in worsening symptoms, uncontrolled hypertension, recurrent strokes and even . Patient knowledges understanding instructions. --Substance abuse; Current Visit: Yes Status: Acute Tox screen positive for marijuana and amphetamine Patient will be advised to quit recreational drug use -- DVT prophylaxis Current Visit: Yes Status: Acute Plan to address problem: SCD to bilateral lower extremities while in bed, patient is ambulatory. History Interval history: No new events no new complaints Hospitalist Physical - Constitutional Vitals: Temp Pulse Resp BP Pulse Ox 98.9 F 106 H 18 133/103 98 08/19/19 03:49 08/19/19 06:00 08/19/19 06:00 08/19/19 06:00 08/19/19 08:03 General appearance: Present: no acute distress, well-nourished - EENT Eyes: Present: PERRL, EOM intact - Neck Neck: Present: supple, normal ROM - Respiratory Respiratory effort: normal Respiratory: bilateral: diminished, negative: rales, rhonchi, wheezing - Cardiovascular Rhythm: regular Heart Sounds: Present: S1 & S2 - Extremities Extremities: no ischemia, No edema - Abdominal General gastrointestinal: soft, non-tender, non-distended, normal bowel sounds - Integumentary Integumentary: Present: clear, warm - Psychiatric Psychiatric: appropriate mood/affect, cooperative - Neurologic Neurologic: moves all extremities Results - Labs CBC & Chem 7: 08/17/19 14:28 08/17/19 14:28 Labs: Laboratory Last Values WBC 6.7 K/mm3 (4.5-11.0) 08/17/19 14:28 RBC 4.03 M/mm3 (3.65-5.03) 08/17/19 14:28 Hgb 14.4 gm/dl (10.1-14.3) H 08/17/19 14:28 Hct 41.8 % (30.3-42.9) 08/17/19 14:28 MCV 104 fl (79-97) H 08/17/19 14:28 MCH 36 pg (28-32) H 08/17/19 14:28 MCHC 35 % (30-34) H 08/17/19 14:28 RDW 16.6 % (13.2-15.2) H 08/17/19 14:28 Plt Count 399 K/mm3 (140-440) 08/17/19 14:28 Lymph % (Auto) 19.5 % (13.4-35.0) 08/17/19 14:28 [place] % (Auto) 7.0 % (0.0-7.3) 08/17/19 14:28 Eos % (Auto) 0.5 % (0.0-4.3) 08/17/19 14:28 Baso % (Auto) 0.5 % (0.0-1.8) 08/17/19 14:28 Lymph # 1.3 K/mm3 (1.2-5.4) 08/17/19 14:28 [place] # 0.5 K/mm3 (0.0-0.8) 08/17/19 14:28 Eos # 0.0 K/mm3 (0.0-0.4) 08/17/19 14:28 Baso # 0.0 K/mm3 (0.0-0.1) 08/17/19 14:28 Seg Neutrophils % 72.5 % (40.0-70.0) H 08/17/19 14:28 Seg Neutrophils # 4.9 K/mm3 (1.8-7.7) 08/17/19 14:28 PT 14.1 Sec. (12.2-14.9) 08/17/19 14:28 INR 1.08 (0.87-1.13) 08/17/19 14:28 APTT 26.4 Sec. (24.2-36.6) 08/17/19 14:28 Thrombin Time 17.0 Sec. (15.1-19.6) 08/17/19 14:28 Sodium 141 mmol/L (137-145) 08/17/19 14:28 Potassium 3.2 mmol/L (3.6-5.0) L 08/17/19 14:28 Chloride 102.7 mmol/L (98-107) 08/17/19 14:28 Carbon Dioxide 22 mmol/L (22-30) 08/17/19 14:28 Anion Gap 20 mmol/L 08/17/19 14:28 BUN 4 mg/dL (7-17) L 08/17/19 14:28 Creatinine 0.7 mg/dL (0.7-1.2) 08/17/19 14:28 Estimated GFR > 60 ml/min 08/17/19 14:28 BUN/Creatinine Ratio 6 % 08/17/19 14:28 Glucose 124 mg/dL (65-100) H 08/17/19 14:28 POC Glucose 95 (70-105) 08/17/19 14:29 Calcium 8.3 mg/dL (8.4-10.2) L 08/17/19 14:28 Troponin T < 0.010 ng/mL (0.00-0.029) 08/17/19 14:28 Triglycerides 105 mg/dL (2-149) 08/18/19 04:31 Cholesterol 228 mg/dL (50-199) H 08/18/19 04:31 LDL Cholesterol Direct 96 mg/dL (50-130) 08/18/19 04:31 HDL Cholesterol 113 mg/dL (40-59) H 08/18/19 04:31 Cholesterol/HDL Ratio 2.01 % 08/18/19 04:31 Urine Opiates Screen Presumptive negative 08/17/19 19:35 Urine Methadone Screen Presumptive negative 08/17/19 19:35 Ur Barbiturates Screen Presumptive negative 08/17/19 19:35 Ur Phencyclidine Scrn Presumptive negative 08/17/19 19:35 Ur Amphetamines Screen Presumptive positive 08/17/19 19:35 U Benzodiazepines Scrn Presumptive negative 08/17/19 19:35 Urine Cocaine Screen Presumptive negative 08/17/19 19:35 U Marijuana (THC) Screen Presumptive positive 08/17/19 19:35 Drugs of Abuse Note Disclamer 08/17/19 19:35 - Diagnostic Impressions Diagnostic Impressions: Echocardiogram 08/17/19 16:52 Transthoracic Echocardiogram Indication: Stroke BP: 149/93 HR: 111 Conclusions *The left ventricular chamber size is normal. *Global left ventricular systolic function is normal. *Global left ventriclar systolic function appears hyperdynamic. *The estimated ejection fraction is 65-70%. *The left atrial chamber size is normal. *No atrial septal defected is demonstrated by agitated saline contrast. *The inferior vena cava appears normal in size. *There is no pericardial effusion. Findings Left Ventricle: The left ventricular chamber size is normal. Global left ventriclar systolic function appears hyperdynamic. The estimated ejection fraction is 65-70%. Abnormal left ventricular diastolic filling is observed, consistent with impaired relaxation. Left Atrium: The left atrial chamber size is normal. Right Ventricle: The right ventricular cavity size is normal. The right ventricular global systolic function is normal. Right Atrium: The right atrium is mildly dilated. No atrial septal defected is demonstrated by agitated saline contrast. Aortic Valve: The aortic valve structure is normal. There is no evidence of aortic regurgitation. Mitral Valve: The mitral valve leaflets appear normal. There is trace of mitral regurgitation. Tricuspid Valve: The tricuspid valve leaflets are normal. There is no evidence of tricuspid valve regurgitation. Pulmonic Valve: The pulmonic valve appears normal. There is trace pulmonic regurgitation. Pericardium: There is no pericardial effusion. Aorta: There is no dilatation of the ascending aorta. There is no dilatation of the aortic root. Venous: The inferior vena cava appears normal in size. There is a greater than 50% respiratory change in the inferior vena cava dimension. Contrast: Intravenous agitated saline contrast was used to assess intracardiac shunting. Measurements Chambers 2D Name Value Normal Range IVSd (2D) 1.06 cm (0.6 - 1.1) LVPWd (2D) 1.09 cm (0.6 - 1.1) LVIDd (2D) 4.17 cm (3.7 - 5.6) LVIDs (2D) 2.75 cm (2 - 3.8) LV FS (2D) 33.99 % - EF Teichholz (2D) 63.33 % - Ao root diameter (2D) 2.49 cm (2 - 3.7) Volumes/Mass Name Value Normal Range LA ESV SP 4CH (A/L) 32.75 ml - LA ESV SP 2CH (A/L) 37.07 ml - LA ESV BP (A/L) 34.87 ml - LA ESV BP (A/L) index 20.76 ml/m2 - LA ESV SP 4CH (MOD) 31.09 ml - LA ESV SP 2CH (MOD) 35.28 ml - LA ESV BP (MOD) 33.05 ml - LA ESV BP (MOD) index 19.67 ml/m2 - Diastolic/Systolic Function Name Value Normal Range MV E-wave Vmax 0.66 m/sec - MV deceleration time 128.19 msec - MV A-wave Vmax 1 m/sec - MV E:A ratio 0.66 ratio - Aortic Valve Name Value Normal Range AV Vmax 1.88 m/sec - AV VTI 26.66 cm - AV peak gradient 14.14 mmHg - AV mean gradient 7.71 mmHg - LVOT diameter 1.77 cm - LVOT Vmax 1.35 m/sec - LVOT VTI 20.05 cm - LVOT peak gradient 7.28 mmHg - LVOT mean gradient 3.8 mmHg - SV LVOT 49.09 ml - EVENS (continuity Vmax) 1.76 cm2 - EVNES (continuity VTI) 1.84 cm2 - Pulmonic Valve/Qp:Qs Name Value Normal Range PV Vmax 1.4 m/sec - PV peak gradient 7.81 mmHg - PV acceleration time 53.28 msec - Ornelas/IV: Voiding Method External Female Catheter IV Catheter Type [Left Peripheral IV Antecubital] IV Catheter Type [Right Peripheral IV Antecubital] IV Catheter Type [Left Forearm Peripheral IV ] Active Medications - Current Medications Current Medications: Generic Name Dose Route Start Last Admin Trade Name Freq PRN Reason Stop Dose Admin Acetaminophen 650 mg 08/17/19 16:50 Tylenol PO Q4H PRN Pain, Mild (1-3) Atorvastatin Calcium 40 mg 04/19/20 22:00 08/18/19 22:07 Lipitor PO 40 mg QHS NORM Administration Bisacodyl 10 mg 08/17/19 16:50 Dulcolax DC QDAY PRN Constipation Nicardipine HCl 50 mg/ Sodium 250 mls @ 25 mls/hr 08/17/19 15:30 08/18/19 08:26 Chloride IV Infused TITR NORM Titration Protocol 5 MG/HR Magnesium Hydroxide 30 ml 08/17/19 16:50 Milk Of Magnesia PO Q4H PRN Constipation Metoclopramide HCl 10 mg 08/17/19 16:50 Reglan PO Q6H PRN Nausea And Vomiting Ondansetron HCl 4 mg 08/17/19 16:50 Zofran IV Q8H PRN Nausea And Vomiting Promethazine HCl 25 mg 08/17/19 16:50 Phenergan DC Q6H PRN Nausea And Vomiting Sodium Chloride 10 ml 08/17/19 16:50 Sodium Chloride Flush Syringe 10 Ml IV PRN PRN LINE FLUSH
[2019-08-19 11:05] VITALS: BP 173/116
--- NOTE | 2019-08-19 11:53 | Consultation ---
Past History Past Medical History: hypertension, other (See HPI) Past Surgical History: No surgical history, Other (Reviewed) Social history: single, smoking Family history: hypertension Medications and Allergies Allergies Allergy/AdvReac Type Severity Reaction Status Date / Time No Known Allergies Allergy Verified 01/23/18 14:18 Home Medications Medication Instructions Recorded Confirmed Last Taken Type Amlodipine Besylate [Norvasc] 10 mg PO DAILY #30 tablet 01/23/18 08/18/19 Un known Rx hydroCHLOROthiazide [HCTZ] 25 mg PO QDAY #30 tablet 01/23/18 08/18/19 Unknown Rx Active Meds: Active Medications Acetaminophen (Tylenol) 650 mg PO Q4H PRN PRN Reason: Pain, Mild (1-3) Atorvastatin Calcium (Lipitor) 40 mg PO QHS NORM Last Admin: 08/18/19 22:07 Dose: 40 mg Documented by: Bisacodyl (Dulcolax) 10 mg [place] QDAY PRN PRN Reason: Constipation Nicardipine HCl 50 mg/ Sodium (Chloride) 250 mls @ 25 mls/hr IV TITR NORM; Protocol Last Titration: 08/18/19 08:26 Dose: Infused Documented by: Magnesium Hydroxide (Milk Of Magnesia) 30 ml PO Q4H PRN PRN Reason: Constipation Metoclopramide HCl (Reglan) 10 mg PO Q6H PRN PRN Reason: Nausea And Vomiting Ondansetron HCl (Zofran) 4 mg IV Q8H PRN PRN Reason: Nausea And Vomiting Promethazine HCl (Phenergan) 25 mg [place] Q6H PRN PRN Reason: Nausea And Vomiting Sodium Chloride (Sodium Chloride Flush Syringe 10 Ml) 10 ml IV PRN PRN PRN Reason: LINE FLUSH Physical Examination - Vital Signs Vital Signs: Vital Signs Pulse BP 106 H 184/114 08/17/19 14:53 08/17/19 14:53 Results - Laboratory Findings CBC and BMP: 08/17/19 14:28 08/17/19 14:28 Abnormal Lab Findings: Abnormal Labs 08/17/19 08/17/19 08/18/19 14:28 14:28 04:31 Hgb 14.4 H MCV 104 H MCH 36 H MCHC 35 H RDW 16.6 H Seg Neutrophils % 72.5 H Potassium 3.2 L BUN 4 L Glucose 124 H Calcium 8.3 L Cholesterol 228 H HDL Cholesterol 113 H Assessment and Plan 29 YR OLD FEMALE WITH HISTORY OF HYPERTENSION AND NO OTHER SIGNIFICANT MEDICAL PROBLEM WHO DEVELOPED A SUDDEN ONSET OF RT HAND WEAKNESS ASSOCIATED WITH SLURRED SPEECH. PATIENT WAS EVALUATED BY TELE NEUROLOGIST AND SHE WAS WITHIN THERAPEUTIC WINDOW SHE WAS GIVEN TPA AND ADMITTED TO ICU FOR CONTINUATION OF CARE. PATIENT'S SYMPTOMS RESOLVED AFTER TPA ADMINISTRATION.CT SCAN OF THE BRAIN DID NOT SHOW ANY ACUTE CHANGE. MRI WAS NOT DONE. PHYSICAL EXAMINATION. GENERAL- IN NO ACUTE DISTRESS HEART-NORMAL RATE AND RHYTHM CAROTIDS-BOTH PALPABLE CRANIAL NERVES- NO FACIAL WEAKNESS OR ASYMMERTY, OTHER CRANIAL NERVES ARE WITH IN NORMAL LIMIT MOTOR- NORMAL STRENGTH IN ALL FOUR EXTREMITIES REFLEXES- ALL WITH IN NORMAL LIMIT WITH DOWN GOING TOES. COORDINATION- NORMAL. SENSORY- GROSSLY WITH IN NORMAL LIMIT GAIT - NORMAL IMPRESSION. 1. ACUTE STROKE S/P TPA WITH NO RESIDUAL DEFICIT 2.STROKE LIKELY TO BE OF CARDIO EMBOLIC IN ORIGIN RECOMMEND. 1. ASPIRIN 81 MG EVERY DAY WITH FOOD. 2. DIETARY COUNSELING ABOUT AVOIDING GREASY AND FRIED FOOD AND AVOIDANCE OF FOODS RICH IN SATURATED FAT 3. STATIN INITIALLY WHICH MAY BE DISCONTINUED BY PRIMARY CARE PHYSICIAN IF PATIENT CONTINUES TO HAVE HIGH HDL AND LOW CHOLESTEROL/HDL RATIO IN A FOLLOW UP EVALUATION. 4. PATIENT CAN BE DISCHARGED FROM [facility]
--- NOTE | 2019-08-19 12:37 | Discharge Summary ---
Providers - Providers Date of Admission: 08/17/19 16:51 Date of discharge: 08/19/19 Attending physician: EARL CARO 08/17/19 16:51 Occupational Therapy Evaluate and Treat [CONS] Routine Comment: Reason For Exam: Neuro deficits Physical Therapy Evaluation and Treat [CONS] Routine Comment: Reason For Exam: Neuro deficits Speech Therapy Evaluation and Treat [CONS] Routine Reason For Exam: swallow eval 08/19/19 10:25 Consult to Physician [CONS] Routine Comment: Consulting Provider: CALE HOLLEY Physician Instructions: Reason For Exam: Acute CVA status post TPA Primary care physician: [facility], [place] Hospitalization Reason for admission: Rt arm weakness and slurring speech Condition: Fair Pertinent studies: Neuro work-up so far; MRI brain: Patient refused CT head; no focal mass hemorrhage hydrocephalus or infarct CTA head; no significant narrowing on CTA head CTA neck; no significant stenosis on CTA neck\ Carotid Doppler; no hemodynamically significant stenosis Echo; EF 65 to 70%, no ASD CT cervical spine; comminuted fracture involving the left anterior C1 vertebra with mild displacement of the fracture fragments recommend further evaluation with CTA neck to evaluate the vertebral arteries [CTA neck ,no acute abnormality] Minimal depression of the superior endplate of T3 on 2 4 of uncertain chronicity Possible bilateral mandibular neck fractures recommend further evaluation with CT maxillofacial CVA status post TPA Hospital course: 29 YO Female with HTN, Medication Noncompliance, Nicotine Dependence was admitted through ER with sudden onset weakness of right arm with difficulty speaking. A code stroke was called. Tele-neurology was consulted and recommended mended administration of TPA. Patient was treated with TPA in the emergency department. Patient admitted to ICU ,evaluated by neurology ,had extensive neuro w/u ,Patient refused MRI.Patient did not have any residual deficit. Today patient is comfortable,no new complaints,vital signs stable.Received PT,OT Cleared by neuro for DC and f/u with PMD,neurology per schedule. Discharge Diagnosis: -- Ac.CVA (cerebral vascular accident)s/p Tpa Current Visit: Yes Status: Acute No residual deficit Neuro w/u as below. Patient refused MRI brain. Neurology evaluated and cleared for discharge Had extensive neuro w/u PT/OT -- Hypertension Current Visit: Yes Status: Acute Monitor blood pressure every shift, permissive hypertension overnight --Noncompliance Current Visit: Yes Status: Acute Patient counseled regarding medication compliance. Patient informed that future noncompliance with antihypertensive therapy may result in worsening symptoms, uncontrolled hy pertension, recurrent strokes and even . Patient knowledges understanding instructions. --Substance abuse; Current Visit: Yes Status: Acute Tox screen positive for marijuana and amphetamine Patient will be advised to quit recreational drug use Advised to quit tobacco use. -- DVT prophylaxis Current Visit: Yes Status: Acute Plan to address problem: SCD to bilateral lower extremities while in bed, patient is ambulatory. Cleared by Neurology. Stable at discharge Disposition: DC-01 TO HOME OR SELFCARE Time spent for discharge: 32 min Core Measure Documentation - Palliative Care Palliative Care/ Comfort Measures: Not Applicable - Core Measures Any of the following diagnoses?: stroke - Stroke Discharge Requirements Statin for LDL = or >70 mg/dl on DC: Yes Anticoag for atrial fib/atrial flutter: Not Applicable (No afib/flutter) Antithrombotic for ischemic stroke: Yes Exam - Constitutional Vitals: Temp Pulse Resp BP Pulse Ox 98.9 F 135 H 26 H 173/116 100 08/19/19 03:49 08/19/19 11:00 08/19/19 11:00 08/19/19 11:00 08/19/19 11:00 General appearance: Present: no acute distress, well-nourished - EENT Eyes: Present: PERRL, EOM intact - Neck Neck: Present: supple, normal ROM - Respiratory Respiratory effort: normal Respiratory: negative: rales, rhonchi, wheezing - Cardiovascular Rhythm: regular Heart Sounds: Present: S1 & S2 - Extremities Extremities: no ischemia, No edema - Abdominal General gastrointestinal: Present: soft, non-tender, non-distended, normal bowel sounds - Rectal Rectal Exam: normal exam-external/orifice - Integumentary Integumentary: Present: clear, warm - Musculoskeletal Musculoskeletal: strength equal bilaterally - Neurologic Neurologic: moves all extremities Plan Activity: no restrictions Diet: other (cardiac diet) Additional Instructions: If you have worsening symptoms,contact MD or go to ER Follow up with: WAGNER APPIAH MD [Primary Care Provider] - 3-5 Days YANG LONG MD [Staff Physician] - 7 Days Prescriptions: amLODIPine 10 mg PO DAILY #30 tab Aspirin EC [Halfprin EC] 81 mg PO QDAY #30 tablet. hydroCHLOROthiazide [HCTZ] 25 mg PO QDAY #30 tablet AtorvaSTATin [Lipitor] 40 mg PO QHS #30 tablet
== END 2019-08-19 13:22 | disposition left against medical advice (07) | DRG 63 ==
LOC: ED 14:11 → IMCU 16:51
PROVIDERS: ADMIT Internal Medicine; ATTEND Internal Medicine
DX: I63.9 Cerebral infarction, unspecified (principal); I10 Essential (primary) hypertension; F17.200 Nicotine dependence, unspecified, uncomplicated; Z71.6 Tobacco abuse counseling; Z82.49 Family history of ischemic heart disease and other diseases of the circulatory system; Z91.19 Patient's noncompliance with other medical treatment and regimen
CPT/HCPCS: 36415; 70450; 70496; 70498; 80048; 80061; 80307; 82962; 84484; 85025; 85610; 85670; 85730; 93005; 93306; 93880; G0378; A9270-GY; G0515-GN; J2997; J7050; Q9967

== ENCOUNTER 2019-09-12 00:57 | Emergency (ER) | payer OTHER, SELFPAY ==
[2019-09-12 03:16] LABS: Bilirubin,Urine NEG (Negative); Blood,Urine MOD (Negative); Color,Urine Colorless (Yellow); Protein,Urine <15 mg/dL mg/dL (Negative); RBC,Urine < 1.0 /HPF (0.0-6.0); Urobilinogen,Urine < 2.0 mg/dL (<2.0)
[2019-09-12 03:17] LABS: WBC,Urine < 1.0 /HPF (0.0-6.0)
[2019-09-12 03:20] LABS: HCG Qualitative,Urine Negative (Negative)
[2019-09-12 03:32] LABS: Basophils % (Auto) 0.3 % (0.0-1.8); Hemoglobin 13.9 gm/dl (10.1-14.3); Lymphocytes # (Auto) 1.1 K/mm3 (1.2-5.4); Lymphocytes % (Auto) 6.8 % (13.4-35.0); Mean Corpuscular HGB Conc 34 % (30-34); Mean Corpuscular Volume 100 fl (79-97); Monocytes # (Auto) 0.5 K/mm3 (0.0-0.8); Monocytes % (Auto) 3.3 % (0.0-7.3); Platelet Count 436 K/mm3 (140-440); Red Blood Count 4.08 M/mm3 (3.65-5.03); Red Cell Distribution Width 14.5 % (13.2-15.2)
[2019-09-12 03:52] LABS: Alanine Aminotransferase 76 units/L (7-56); Albumin 4.9 g/dL (3.9-5); BUN/Creatinine Ratio 7; Blood Urea Nitrogen 5 mg/dL (7-17); Calcium 9.6 mg/dL (8.4-10.2); Hemolysis Index 14
[2019-09-12] MEDS ORDERED: SODIUM CHLORIDE 0.9% 1000 ML IV SOLN IV ONE (04:43)
[2019-09-12] MEDS ORDERED: IBUPROFEN 800 MG TAB PO ONE (04:50)
--- NOTE | 2019-09-12 05:07 | XRay Report ---
Right forearm-2 views INDICATION: trauma laceration Forearm. COMPARISON: None. IMPRESSION: Large soft tissue laceration along the mid forearm laterally with subcutaneous gas. No a cute fracture or radiopaque foreign body identified. Signer Name: Bebo Tsai MD Signed: 09/12/2019 5:02 AM Workstation Name: [id number]
[2019-09-12 05:24] VITALS: BP 132/81
--- NOTE | 2019-09-12 05:39 | XRay Report ---
CHEST 1 VIEW INDICATION: tachycardia. COMPARISON: None FINDINGS: Support devices: None. Heart: Within normal limits. Lungs/Pleura: No acute air space or interstitial disease. Additional findings: None. IMPRESSION: 1. No acute findings. Signer Name: Bebo Tsai MD Signed: 09/12/2019 5:34 AM Workstation Name: [id number]
--- NOTE | 2019-09-12 06:20 | Emergency Department Report ---
ED General Adult HPI - General Chief complaint: Animal Bite Stated complaint: DOG BITE TO RT FOREARM AND LT EYE Time Seen by Provider: 09/12/19 06:14 Source: patient Mode of arrival: Ambulatory Limitations: No Limitations - History of Present Illness Initial comments: Ms. Sears is a 29-year-old -[place] female who presents for right forearm laceration status post fall approximately 3 hours ago. States she slipped and fell versus 2 steps. She initially stated in triage it was a dog bite because she did not explain what she states occasional EtOH states she is not drunk at this time. Wound is approximately 5 cm right forearm puncture wo und. No obvious foreign bodies no tendon muscle or nerve damage noted, range of motion remains intact and unrestricted. There is no deformity. Patient is currently alert and oriented x3 ambulatory with steady gait with appropriate mentation. Onset/Timin -: hour(s) Location: upper extremity Severity scale (0 -10): 7 Quality: other (lacertion) Consistency: constant Improves with: none Worsens with: none Associated Symptoms: other. denies: chest pain, fever/chills, shortness of breath, weakness (no bleeding ) - Related Data Previous Rx's Medication Instructions Recorded Last Taken Type Aspirin EC [Halfprin EC] 81 mg PO QDAY #30 tablet. 08/19/19 Unknown Rx AtorvaSTATin [Lipitor] 40 mg PO QHS #30 tablet 08/19/19 Unknown Rx amLODIPine 10 mg PO DAILY #30 tab 08/19/19 Unknown Rx hydroCHLOROthiazide [HCTZ] 25 mg PO QDAY #30 tablet 08/19/19 Unknown Rx cephALEXin [Keflex] 500 mg PO Q8HR 10 Days #30 cap 09/12/19 Unknown Rx traMADoL [Ultram] 50 mg PO Q6HR PRN #12 tablet 09/12/19 Unknown Rx Allergies Allergy/AdvReac Type Severity Reaction Status Date / Time No Known Allergies Allergy Verified 01/23/18 14:18 ED Review of Systems ROS: Stated complaint: DOG BITE TO RT FOREARM AND LT EYE Other details as noted in HPI Constitutional: denies: chills, fever Eyes: denies: eye pain, eye discharge, vision change ENT: denies: ear pain, throat pain Respiratory: no symptoms reported Cardiovascular: denies: chest pain, palpitations Endocrine: no symptoms reported Gastrointestinal: denies: abdominal pain, nausea, vomiting, diarrhea Genitourinary: denies: urgency, dysuria, discharge Musculoskeletal: other (right forearm laceration). denies: back pain, joint swelling, arthralgia Skin: other (laceration as above ). denies: rash, lesions Neurological: denies: headache, weakness, paresthesias Psychiatric: denies: anxiety, depression Hematological/Lymphatic: denies: easy bleeding, easy bruising ED Past Medical Hx - Past Medical History Hx Hypertension: Yes Hx Congestive Heart Failure: No Hx Diabetes: No Hx Asthma: No Hx COPD: No - Social History Smoking Status: Current Every Day Smoker Substance Use Type: Alcohol - Medications Home Medications: Home Medications Medication Instructions Recorded Confirmed Last Taken Type Aspirin EC [Halfprin EC] 81 mg PO QDAY #30 tablet.dr 08/19/19 Unknown Rx AtorvaSTATin [Lipitor] 40 mg PO QHS #30 tablet 08/19/19 Unknown Rx amLODIPine 10 mg PO DAILY #30 tab 08/19/19 Unknown Rx hydroCHLOROthiazide [HCTZ] 25 mg PO QDAY #30 tablet 08/19/19 Unknown Rx cephALEXin [Keflex] 500 mg PO Q8HR 10 Days #30 cap 09/12/19 Unknown Rx traMADoL [Ultram] 50 mg PO Q6HR PRN #12 tablet 09/12/19 Unknown Rx ED Physical Exam - General Limitations: No Limitations General appearance: alert, in no apparent distress - Head Head exam: Present: normocephalic, normal inspection - Expanded Head Exam Expanded Head exam: Present: abrasion (left eye brow ). Absent: contusion, hematoma - Eye Eye exam: Present: normal appearance, PERRL, EOMI. Absent: nystagmus, periorbital swelling, periorbital tenderness Pupils: Present: normal accommodation - ENT ENT exam: Present: normal orophraynx, mucous membranes moist, TM's normal bilaterally, normal external ear exam - Neck Neck exam: Present: normal inspection, full ROM. Absent: tenderness (no posterior vertebral point tenderness rom intact and unrestricted ) - Expanded Neck Exam Expanded Neck exam: Absent: midline deformity, anterior neck swelling, thyroid mass, carotid bruit, tracheal deviation - Respiratory Respiratory exam: Present: normal lung sounds bilaterally. Absent: respiratory distress, wheezes, stridor, chest wall tenderness - Cardiovascular Cardiovascular Exam: Present: regular rate, normal rhythm, normal heart sounds. Absent: systolic murmur, diastolic murmur, rubs, gallop - GI/Abdominal GI/Abdominal exam: Present: soft, normal bowel sounds. Absent: distended, tenderness, bruit, hernia - Rectal Rectal exam: Present: deferred - Extremities Exam Extremities exam: Present: normal inspection, full ROM, normal capillary refill. Absent: tenderness - Expanded Upper Extremity Exam Right Forearm Wrist exam: Present: full ROM, laceration. Absent: tenderness, swelling, abrasion, ecchymosis, deformity, crepidus, dislocation, erythema, tenderness over anatomical snuff box, pain with axial thumb loading Hand Wrist exam: Present: full ROM. Absent: tenderness, swelling Neuro motor exam: Present: wrist extension intact, thumb opposition intact, thumb IP flexion intact, thumb adduction intact, fingers 2-5 abduction intact Neurosensory exam: Present: 2-point discrimination, radial nerve intact Vascular: Present: normal capillary refill - Back Exam Back exam: Present: normal inspection, full ROM. Absent: tenderness, CVA tenderness (R), CVA tenderness (L), vertebral tenderness - Neurological Exam Neurological exam: Present: alert, oriented X3, CN II-XII intact, normal gait, reflexes normal. Absent: motor sensory deficit - Psychiatric Psychiatric exam: Present: normal affect, normal mood - Skin Skin exam: Present: warm (1), dry, intact, normal color, other (laceration as above ). Absent: rash ED Course Vital Signs 09/12/19 09/12/19 09/12/19 01:07 02:08 02:25 Temperature 100.6 F H 99.3 F Pulse Rate 157 H 144 H 124 H Respiratory 22 16 Rate Blood Pressure 168/82 156/89 Blood Pressure [Left] O2 Sat by Pulse 98 98 Oximetry 09/12/19 05:23 Temperature Pulse Rate 107 H Respiratory 15 Rate Blood Pressure Blood Pressure 132/81 [Left] O2 Sat by Pulse 99 Oximetry - Laceration /Wound Repair Right Lower Anterior Arm Wound Location: upper extremity (right lower anterior forearm 5 cm irregular no nerve tendon or muscel damage distal pulse intact rom intact ) Wound Length (cm): 5 Wound's Depth, Shape: superficial, irregular, flap Wound Explored: clean Irrigated w/ Saline (ccs): 500 Betadine Prep?: Yes Anesthesia: 1% Lidocaine Volume Anesthetic (ccs): 5 Wound Debrided: none required Wound Repaired With: sutures Suture Size/Type: 3:0, proline Number of Sutures: 15 Layer Closure?: No Progress: Right forearm flap laceration. 5 cm. No nerve tendon or muscle damage range of motion is intact and unrestricted distal pulses +2 bilateral [employer]ER less than 3 seconds bilateral. Wound cleaned with Betadine solution anesthesia with 1% lidocaine x5 cc appropriate anesthesia is achieved. Wound is irrigated with 500 cc of sterile saline, wound was manually and visually explored no foreign bodies x-ray negative for foreign bodies , wound closed with 3-0 Prolene x15 sutures running. All bleeding is controlled. Sterile dressing applied. Patient tolerated procedure with minimal distress. Patient given wound care instructions including return to PCP in 2 to 3 days for wound check and return to PCP in 10 days for suture removal. Patient verbalized agreement and understanding with discharge plan. ED Medical Decision Making - Lab Data Result diagrams: 09/12/19 03:04 09/12/19 03:04 - EKG Data EKG shows normal: sinus rhythm Rate: tachycardia - EKG Data 09/12/19 06:32 Sinustachycardia, no st elevated NC, ekg interp be ed attending. - Radiology Data Radiology results: report reviewed, image reviewed Findings Reporting MD: Bebo Tsai Dictation Time: September 12, 2019 04:34 Pricing Manager: Not available Rubber Gasket Inspector Trimmer Date: CHEST 1 VIEW INDICATION: tachycardia. COMPARISON: None FINDINGS: Support devices: None. Heart: Within normal limits. Lungs/Pleura: No acute air space or interstitial disease. Additional findings: None. IMPRESSION: 1. No acute findings. Signer Name: Bebo Tsai MD Signed: 09/12/2019 4:34 AM Workstation Name: [email or web address] Findings Reporting MD: Bebo Tsai Dictation Time: September 12, 2019 04:02 Pricing Manager: Not available Rubber Gasket Inspector Trimmer Date: Right forearm-2 views INDICATION: trauma laceration Forearm. COMPARISON: None. IMPRESSION: Large soft tissue laceration along the mid forearm laterally with subcutaneous gas. No acute fracture or radiopaque foreign body identified. Signer Name: Bebo Tsai MD Signed: 09/12/2019 4:02 AM Workstation Name: [email or web address] - Medical Decision Making Right forearm laceration repaired. Heart rate and vital signs improved with medications given in ED to include normal saline at 20 cc EKG bolus. Heart rate is now 87 BP 135/82 , temperature is resolved, patient given Ancef 2 g IV piggyback, tetanus, ibuprofen, will be DC'd to home with prescription for Keflex , Ultram as needed pain, all bleeding remains controlled distal pulses are intact range of motion is intact, there is no nerve nerve muscle or tendon damage , patient will follow-up with PCP in 2 days for wound check and 10 days for suture removal. Patient will be DC'd to home in stable condition upon completion of all IV fluids, she is currently alert and oriented x3 ambulatory is voiding without problems is tolerating p.o. intake without nausea vomiting, Critical care attestation.: If time is entered above; I have spent that time in minutes in the direct care of this critically ill patient, excluding procedure time. ED Disposition Clinical Impression: Mild dehydration Fall Qualifiers: Encounter type: initial encounter Qualified Code(s): W19.XXXA - Unspecified fall, initial encounter Forearm laceration Qualifiers: Encounter type: initial encounter Laterality: right Qualified Code(s): S51.811A - Laceration without foreign body of right forearm, initial encounter Disposition: DC-01 TO HOME OR SELFCARE Is pt being admited?: No Does the pt Need Aspirin: No Condition: Stable Instructions: Laceration (ED), Dehydration (ED) Additional Instructions: return in 7-10 for suture removal or sooner for symptoms of infection Prescriptions: cephALEXin [Keflex] 500 mg PO Q8HR 10 Days #30 cap traMADoL [Ultram] 50 mg PO Q6HR PRN #12 tablet PRN Reason: Pain Referrals: [facility] [Provider Group] - 3-5 Days Forms: Work/School Release Form(ED) Time of Disposition: 06:35
[2019-09-12] MEDS ORDERED: DIPHtheria,PERTUSSIS(ACELL),TETANUS VACCINE/PF 0.5 ML VIAL IM ONE (06:34)
--- NOTE | 2019-09-12 07:44 | Emergency Department Report ---
Blank Doc - Documentation Documentation: Phoned Ms. Fern Sears at the listed number on file received the immediate voicemail left a message for her to return to the emergency department immediately to continue treatment. Was notified at [phone] that she depart from the emergency department with a elevated lactic acid and white count due to a reported dog bite. Please review the associated chart with the associated clinical providers
== END 2019-09-12 07:03 | disposition home or self-care (01) ==
LOC: ED 00:57
DX: S51.811A Laceration without foreign body of right forearm, initial encounter (principal); E86.0 Dehydration; R00.0 Tachycardia, unspecified; I10 Essential (primary) hypertension; F17.200 Nicotine dependence, unspecified, uncomplicated; Z79.899 Other long term (current) drug therapy; W10.9XXA Fall (on) (from) unspecified stairs and steps, initial encounter; Y93.89 Activity, other specified; Y92.89 Other specified places as the place of occurrence of the external cause; Y99.8 Other external cause status
CPT/HCPCS: 12002; 36415; 71045; 73090; 80053; 81001; 81025; 82140; 84484; 84703; 85025; 87040; 90471; 90715; 93005; 96365; 99284; J0690; J7030